=== PATIENT | female | born 1940 | race Two or more races ===

== ENCOUNTER → 2017-11-17 | Outpatient (CLI) | payer OTHER ==
[~2017-11-17] MED LIST: CIPROFLOXACIN750 MG PO; CLONAZEPAM1 MG PO; DOCUSATE SODIU100 MG PO; GABAPENTIN800 MG PO; PERCOCET 5-3251 EACH PO; SYNTHROID75 MCG PO
== END | disposition home or self-care (01) ==
LOC: RAD 09:29
DX: M43.10 Spondylolisthesis, site unspecified (principal); Z98.1 Arthrodesis status